=== PATIENT | male | born 1955 | race Two or more races ===

== ENCOUNTER 2017-07-02 21:45 | Emergency (ER) | payer MEDICARE ==
[2017-07-02 22:31] LABS: BILIRUBIN,URINE NEGATIVE (NEG); CLARITY,URINE CLEAR; COLOR,URINE YELLOW; GLUCOSE,URINE NEGATIVE (NEG); NITRITE,URINE NEGATIVE (NEG); PROTEIN,URINE NEGATIVE (NEG-TRACE); UROBILINOGEN,URINE 0.2 mg/dL (0.2 mg/dL)
[2017-07-02 22:40] LABS: AMORPHOUS SEDIMENT,UR PRESENT /HPF; BACTERIA,URINE 0 /HPF (0-FEW); SPERM,URINE PRESENT /HPF; SQUAMOUS EPITHELIAL CELL,UR OCC /LPF
[2017-07-02 23:15] LABS: AGAP ISTAT 17 mmol/L (6-14); BUN ISTAT 11 mg/dL (8-26); CHLORIDE ISTAT 99 mmol/L (98-110); GLUCOSE ISTAT 174 mg/dL (70-99); HEMATOCRIT ISTAT 46 % (37-52); HEMOGLOBIN ISTAT 15.6 g/dL (14-18); ION CA ISTAT 1.09 mmol/L (1.13-1.32); POTASSIUM ISTAT 3.8 mmol/L (3.5-5.0); SODIUM ISTAT 141 mmol/L (135-145); TOT CO2 ISTAT 29 mmol/L (23-32)
[2017-07-02] MEDS ORDERED: LABETALOL 20 MG/4 ML DISP.SYRIN. IVP ×2 (23:30)
[2017-07-02] MEDS ORDERED: IV NORMAL SALINE 500ML BAG 250 ML IV ×2 (23:30)
== END 2017-07-02 23:50 | disposition home or self-care (01) ==
LOC: ER 23:50
DX: I10 Essential (primary) hypertension (principal); I25.10 Atherosclerotic heart disease of native coronary artery without angina pectoris; E11.9 Type 2 diabetes mellitus without complications; E78.00 Pure hypercholesterolemia, unspecified; Z86.73 Personal history of transient ischemic attack (TIA), and cerebral infarction without residual deficits
CPT/HCPCS: 80047; 81001; 87086; 87186; 93005; 99285-25